=== PATIENT | female | born 1960 | race Caucasian/White ===

== ENCOUNTER 2017-07-09 11:26 | Day surgery (SDC) | payer BC ==
[2017-07-09] MEDS: LR 1,000 ML IV (11:55)
[2017-07-09] MEDS ORDERED: LIDOCAINE 2% INJ 100 MG/5 ML SDV (FOR ANES.) As Ordered (13:12)
[2017-07-09] MEDS ORDERED: MIDAZOLAM INJ 2 MG/2 ML VIAL (J2250) As Ordered (13:12)
[2017-07-09] MEDS ORDERED: fentaNYL 100 MCG/2 ML INJECTION (J3010) As Ordered (13:12)
[2017-07-09] MEDS ORDERED: PROPOFOL 200 MG/20 ML VIAL As Ordered ×2 (13:12)
[2017-07-09] MEDS ORDERED: KETOROLAC 60 MG/2 ML VIAL (J1885) As Ordered (13:13)
[2017-07-09] MEDS ORDERED: ONDANSETRON 4MG/2ML VIAL (J2405) As Ordered (13:13)
[2017-07-09] MEDS: LIDOCAINE 1% MDV 20ML VIAL As Ordered (13:26)
== END 2017-07-09 16:00 | disposition home or self-care (01) ==
LOC: M SDC 16:00
DX: D05.11 Intraductal carcinoma in situ of right breast (principal); Z90.2 Acquired absence of lung [part of]; Z92.21 Personal history of antineoplastic chemotherapy
CPT/HCPCS: 19120

== ENCOUNTER → 2017-08-02 | Outpatient (CLI) | payer BC | LOC: M CARPUL 11:12 | DX: Z79.899 Other long term (current) drug therapy (principal) | CPT/HCPCS: 93306 ==

== ENCOUNTER → 2018-03-11 | Outpatient (CLI) | payer BC | LOC: M ONCR 13:02 | DX: C50.919 Malignant neoplasm of unspecified site of unspecified female breast (principal) | CPT/HCPCS: G0463 ==

== ENCOUNTER 2018-03-18 08:02 | Outpatient (RCR) | payer BC | END 2018-04-03 | LOC: M ONCR 08:02 | DX: C50.911 Malignant neoplasm of unspecified site of right female breast (principal) | CPT/HCPCS: 77300 ==

== ENCOUNTER 2018-04-04 14:34 | Outpatient (RCR) | payer BC | END 2018-05-04 | LOC: M ONCR 04-05 14:36 | DX: C50.911 Malignant neoplasm of unspecified site of right female breast (principal) | CPT/HCPCS: 77336 ==

== ENCOUNTER → 2018-05-11 | Outpatient (CLI) | payer BC | LOC: M ONCR 14:08 | DX: C50.911 Malignant neoplasm of unspecified site of right female breast (principal) | CPT/HCPCS: G0463 ==

== ENCOUNTER → 2020-05-22 | Outpatient (CLI) | payer BC ==
[~2020-05-22] MED LIST: IBUP-1022 PO; LORA0.5T5 PO; LORA1TAB4 PO; NATU400T PO; NORC1TAB7 PO; SUPE1TAB PO; VITA100067 PO; calcium with D OR; vitamin C OR
== END ==
LOC: M LABSMTC 09:49
PROVIDERS: ATTEND Anesthesiology
DX: Z01.812 Encounter for preprocedural laboratory examination (principal); Z20.828 Contact with and (suspected) exposure to other viral communicable diseases

== ENCOUNTER 2020-05-27 09:22 | Day surgery (SDC) | payer BC ==
[~2020-05-27] VITALS: Ht 172.7 cm; Wt 62.1 kg
[~2020-05-27 09:22] MED LIST changes: +NS 1,000 ML IV ONE
[2020-05-27] MEDS ORDERED: propofoL 200 MG/20 ML VIAL As Ordered ONE ×2 (10:54→11:34)
[2020-05-27 11:40] VITALS: BP 111/70
--- NOTE | 2020-05-27 11:46 | ROOR ---
Patient Name: Vonda Tejeda Procedure Date: 05/27/2020 10:52 AM Date of : 1960 Age: 60 Room: [facility] Gender: Female Note Status: Finalized Procedure: Colonoscopy Indications: Screening for colorectal malignant neoplasm Providers: Parth Burns MD Referring MD: Tete AU MD Requesting Provider: Medicines: Monitored Anesthesia Care Complications: No immediate complications. Procedure: Pre-Anesthesia Assessment: - Prior to the procedure, a History and Physical was performed, and patient medications and allergies were reviewed. The patient is competent. The risks and benefits of the procedure and the sedation options and risks were discussed with the patient. All questions were answered and informed consent was obtained. Patient identification and proposed procedure were verified by the physician, the nurse and the anesthesiologist in the procedure room. Mental Status Examination: alert and oriented. Airway Examination: normal oropharyngeal airway and neck mobility. Respiratory Examination: clear to auscultation. CV Examination: normal. Prophylactic Antibiotics: The patient does not require prophylactic antibiotics. Prior Anticoagulants: The patient has taken no previous anticoagulant or antiplatelet agents. ASA Grade Assessment: II - A patient with mild systemic disease. After reviewing the risks and benefits, the patient was deemed in satisfactory condition to undergo the procedure. The anesthesia plan was to use monitored anesthesia care (MAC). Immediately prior to administration of medications, the patient was re-assessed for adequacy to receive sedatives. The heart rate, respiratory rate, oxygen saturations, blood pressure, adequacy of pulmonary ventilation, and response to care were monitored throughout the procedure. The physical status of the patient was re-assessed after the procedure. The Colonoscope was introduced through the anus and advanced to the terminal ileum, with identification of the appendiceal orifice and IC valve. The colonoscopy was performed without difficulty. The patient tolerated the procedure well. The quality of the bowel preparation was good. The terminal ileum, ileocecal valve, appendiceal orifice, and rectum were photographed. Scope insertion time was 3 minutes. Scope withdrawal time was 9 minutes. The total duration of the procedure was 15 minutes. Findings: The perianal and digital rectal examinations were normal. The terminal ileum appeared normal. Three sessile polyps were found in the transverse colon and ascending colon. The polyps were 5 to 8 mm in size. These polyps were removed with a cold snare. Resection and retrieval were complete. To close a defect after polypectomy, two hemostatic clips were successfully placed. There was no bleeding at the end of the procedure. Non-bleeding external and internal hemorrhoids were found during retroflexion. The hemorrhoids were medium-sized. Impression: - The examined portion of the ileum was normal. - Three 5 to 8 mm polyps in the transverse colon and in the ascending colon, removed with a cold snare. Resected and retrieved. Clips were placed. - Non-bleeding external and internal hemorrhoids. Recommendation: - Patient has a contact number available for emergencies. The signs and symptoms of potential delayed complications were discussed with the patient. Return to normal activities tomorrow. Written discharge instructions were provided to the patient. - High fiber diet. - Continue present medications. - Use fiber, for example Citrucel, Fibercon, Konsyl or Metamucil. - Await pathology results. - Repeat colonoscopy in 5 years for surveillance based on pathology results. - Telephone GI clinic for pathology results in 2 weeks. - Return to primary care physician. Procedure Code(s): --- Professional --- 17518, Colonoscopy, flexible; with removal of tumor(s), polyp(s), or other lesion(s) by snare technique Diagnosis Code(s): --- Professional --- Z12.11, Encounter for screening for malignant neoplasm of colon K64.8, Other hemorrhoids K63.5, Polyp of colon CPT copyright 2019 [employer]. All rights reserved. The codes documented in this report are preliminary and upon composition molder review may be revised to meet current compliance requirements. Parth Burns MD Parth Burns MD 05/27/2020 11:45:22 AM Electronically signed by Parth Burns MD Number of Addenda: 0 Note Initiated On: 05/27/2020 10:52 AM Estimated Blood Loss: Estimated blood loss was minimal.
== END 2020-05-27 12:06 | disposition home or self-care (01) ==
LOC: M OPP 09:22
PROVIDERS: ATTEND Internal Medicine Gastroenterology
DX: Z12.11 Encounter for screening for malignant neoplasm of colon (principal); K63.5 Polyp of colon; K64.8 Other hemorrhoids; Z87.09 Personal history of other diseases of the respiratory system; Z85.3 Personal history of malignant neoplasm of breast; Z92.21 Personal history of antineoplastic chemotherapy; Z92.3 Personal history of irradiation

== ENCOUNTER 2025-06-11 06:39 | Day surgery (SDC) | payer MEDICARE, BC ==
[~2025-06-11] VITALS: Ht 172.7 cm; Wt 62.4 kg
[~2025-06-11 06:39] MED LIST changes: -IBUP-1022 PO; +IBUP600T42 PO; +LORA1TAB23 PO; -LORA1TAB4 PO; -NS 1,000 ML IV ONE
[2025-06-11] MEDS ORDERED: GLYCOPYRROLATE INJ 0.2 MG/ML 2 ML VIAL As Ordered ONE (07:11)
[2025-06-11] MEDS ORDERED: LIDOCAINE 2% 100 MG/5 ML SDV (FOR ANES.) As Ordered ONE (07:11)
[2025-06-11 08:04] VITALS: TEMP 97.6
[2025-06-11 08:29] VITALS: BP 111/59; O2SAT 99
== END 2025-06-11 08:31 | disposition home or self-care (01) ==
LOC: M OPP 06:39
PROVIDERS: ATTEND Internal Medicine Gastroenterology
DX: Z12.11 Encounter for screening for malignant neoplasm of colon (principal); K63.5 Polyp of colon; Z86.0100 Personal history of colon polyps, unspecified; Z79.899 Other long term (current) drug therapy
CPT/HCPCS: 45385; 88305; J1596